=== PATIENT | female | born 1990 | race African-American/Black ===

== ENCOUNTER 2016-04-24 18:26 | Emergency (ER) | payer SELFPAY ==
[~2016-04-24] VITALS: Ht 165.1 cm; Wt 100.0 kg
[2016-04-24 18:32] VITALS: BP 146/86
== END 2016-04-24 20:00 | disposition left against medical advice (07) ==
LOC: EMS 18:29
DX: R19.7 Diarrhea, unspecified (principal); I10 Essential (primary) hypertension; Z53.21 Procedure and treatment not carried out due to patient leaving prior to being seen by health care provider

== ENCOUNTER 2016-04-24 21:24 | Emergency (ER) | payer OTHER ==
[~2016-04-24] VITALS: Ht 152.4 cm; Wt 97.7 kg
[2016-04-24] MEDS ORDERED: IBUPROFEN 600 MG TABLET ONE (21:44)
[2016-04-24] MEDS ORDERED: IBUPROFEN 600 MG TABLET PO ONE (22:00)
[2016-04-24 22:39] LABS: INFLUENZA TYPE B NEGATIVE FOR TYPE B (NEGATIVE)
[2016-04-25] MEDS ORDERED: DiphenhydrAMINE HCL 25 MG CAPSULE PO ONE (01:15)
[2016-04-25] MEDS ORDERED: ACETAMINOPHEN/CODEINE 300-30 MG TABLET PO ONE (01:15)
[2016-04-25 01:32] VITALS: BP 132/78
== END 2016-04-25 01:33 | disposition home or self-care (01) ==
LOC: EMS 21:28
DX: J06.9 Acute upper respiratory infection, unspecified (principal); J02.9 Acute pharyngitis, unspecified
CPT/HCPCS: 87804; 99284